=== PATIENT | female | born 1935 | race Caucasian/White ===

== ENCOUNTER 2017-11-29 08:25 | Observation (INO) | payer MEDICARE, OTHER, SELFPAY ==
[2017-11-29] VITALS (8 sets, daily range): BP systolic 90–128; BP diastolic 47–68; PULSE 48–82; RESP 16–22; TEMP 36.8–37.2; O2SAT 95–98; BMI 27.2; BMI 26.2
--- NOTE | 2017-11-29 08:46 | CT_ITS ---
STUDY: CT BRAIN WITHOUT CONTRAST REASON FOR EXAM: Female, 82 years old. Dizziness. RADIATION DOSAGE (If Supplied By Facility): CTDIvol = ( 44.99 ) mGy, DLP = ( 796.11 ) mGycm TECHNIQUE: Transaxial CT imaging of the brain was performed without administration of intravenous contrast material. Individualized dose optimization techniques were used for this CT. COMPARISON: None. FINDINGS: Normal soft tissue structures. Normal calvarium. There is mild cerebral atrophy with widening of the extra-axial spaces and ventricular dilatation. There are areas of decreased attenuation within the white matter tracts of the supratentorial brain, consistent with microvascular disease changes. Normal basal ganglia and thalami. Normal brainstem. Normal cerebellum. There is no intracranial hemorrhage. There are no findings of an acute ischemic infarction. Atherosclerotic calcification of the cavernous portions of the internal carotid arteries bilaterally. Normal visualized paranasal sinuses. CT/Brain/Head without Contrast IMPRESSION: Chronic involutional changes of the brain. Electronically Signed: Lauro Zuniga MD at 9:32 EDT Tel [phone], Service support ,
--- NOTE | 2017-11-29 08:48 | ED.VISSUMM ---
- ER Visit Summary Date of Service: 11/29/17 Chief Complaint: Room spinning dizziness History of Present Illness: The patient is a 82 F extremely healthy. Currently she is on no medications and denies any chronic medical conditions. She has not had any recent hospitalization. Yesterday she had a normal day felt very well. Sometime during the night she got up to go the bathroom and realized she had room spinning dizziness. No prior history. She believes this to be vertigo. She denies any headache, chest pain, abdominal pain or fever. She states the spinning is so bad and made worse with head movement that causes her to have nausea and vomiting. No hematemesis or melena. She denies any numbness, tingling or weakness in her upper or lower extremities. She denies any head trauma. She is on no blood thinners. Physical Examination: Older female vital signs are stable and afebrile. Pulse ox is 95% on room air no hypoxia. Blood pressure 128/66. H EENT exam unremarkable. Neck nontender no lymphadenopathy. Trachea midline. Lungs clear to auscultation bilaterally. Heart regular rhythm no murmur rate about 70. Abdomen soft and nontender. She is moving all 4 extremities. They are neurovascularly intact. She is equal and symmetrical school counselor strength. Dorsi plantar flexion intact. Her neurologic exam is normal. No facial droop. Normal speech. Pupils are round reactive light extraocular motions are intact. Normal school counselor strength. Normal fingertip to nose. Normal dorsi plantarflexion. NIH is 0. With Hallpike maneuvers her symptoms are greatly worsened. To the point where she nearly throws up. Test Results: CAT scan of the brain shows chronic changes no acute process reviewed by me but read by the radiologist. EKG is a sinus bradycardia rate of 50 otherwise no acute abnormality no ischemia. CBC normal white count 8. Hemoglobin of 12. Electrolytes unremarkable gap of 9 creatinine is 0.7. UA is normal. That was requested by the daughter as well as a troponin that is pending. The daughter is an ER nurse and wanted some additional testing done which I told her we would do. Clinically I believe this is consistent with vertigo Emergency Department Course and Treatment: Treated with IV Zofran, IV fluids and I will do screening labs due to her age but clinically her exam and history are consistent with vertigo. Treatment Plan: After being treated with Zofran and IN the patient is sedated and her symptoms are not significantly better. I think she is a risk for a fall and do not feel she can be comfortably discharged to home neither does her daughter nor the patient. I spoke to the hospitalist and no admit her. Disposition: Admission Impression: Acute dizziness with nausea and vomiting secondary to vertigo This note was generated with [employer] dictation software. It may contain incorrect words, spelling, and punctuation that were not noted in review of the chart prior to signing ED Disposition - Plan for ED Patient: Chief Complaint: Dizziness Referrals: Richard Girard MD [NON-STAFF] -
--- NOTE | 2017-11-29 08:51 | ED.DCSUM_ITS ---
- ER Visit Summary Date of Service: 11/29/17 Chief Complaint: Room spinning dizziness History of Present Illness: The patient is a 82 F extremely healthy. Currently she is on no medications and denies any chronic medical conditions. She has not had any recent hospitalization. Yesterday she had a normal day felt very well. Sometime during the night she got up to go the bathroom and realized she had room spinning dizziness. No prior history. She believes this to be vertigo. She denies any headache, chest pain, abdominal pain or fever. She states the spinning is so bad and made worse with head movement that causes her to have nausea and vomiting. No hematemesis or melena. She denies any numbness , tingling or weakness in her upper or lower extremities. She denies any head trauma. She is on no blood thinners. Physical Examination: Older female vital signs are stable and afebrile. Pulse ox is 95% on room air no hypoxia. Blood pressure 128/66. H EENT exam unremarkable. Neck nontender no lymphadenopathy. Trachea midline. Lungs clear to auscultation bilaterally. Heart regular rhythm no murmur rate about 70. Abdomen soft and nontender. She is moving all 4 extremities. They are neurovascularly intact. She is equal and symmetrical multimedia producer strength. Dorsi plantar flexion intact. Her neurologic exam is normal. No facial droop. Normal speech. Pupils are round reactive light extraocular motions are intact. Normal multimedia producer strength. Normal fingertip to nose. Normal dorsi plantarflexion. NIH is 0. With Hallpike maneuvers her symptoms are greatly worsened. To the point where she nearly throws up. Test Results: CAT scan of the brain shows chronic changes no acute process reviewed by me but read by the radiologist. EKG is a sinus bradycardia rate of 50 otherwise no acute abnormality no ischemia. CBC normal white count 8. Hemoglobin of 12. Electrolytes unremarkable gap of 9 creatinine is 0.7. UA is normal. That was requested by the daughter as well as a troponin that is pending. The daughter is an ER nurse and wanted some additional testing done which I told her we would do. Clinically I believe this is consistent with vertigo Emergency Department Course and Treatment: Treated with IV Zofran, IV fluids and I will do screening labs due to her age but clinically her exam and history are consistent with vertigo. Treatment Plan: After being treated with Zofran and IN the patient is sedated and her symptoms are not significantly better. I think she is a risk for a fall and do not feel she can be comfortably discharged to home neither does her daughter nor the patient. I spoke to the hospitalist and no admit her. Disposition: Admission Impression: Acute dizziness with nausea and vomiting secondary to vertigo This note was generated with [employer] dictation software. It may contain incorrect words, spelling, and punctuation that were not noted in review of the chart prior to signing ED Disposition - Plan for ED Patient: Chief Complaint: Dizziness Referrals: Richard Girard MD [NON-STAFF] -
[2017-11-29] MEDS: Ondansetron 4 MG/2 ML Vial IV (09:24)
[2017-11-29] MEDS: 0.9% Normal Saline 1,000 ML 1000 ML IV (09:24)
[2017-11-29] MEDS: diazePAM 5 MG Tablet PO (09:24)
[2017-11-29 09:29] LABS: Absolute Neutrophil Count 7.7 X10^3/uL (2.0-7.7); Basophil# 0.01 X10^3/uL; Basophil% 0.1 % (0-1); Eosinophil# 0.01 X10^3/uL; Eosinophils% 0.1 % (0-5); Hematocrit 37.5 % (37-47); Hemoglobin 12.2 g/dl (12.0-15.0); Lymphocyte % 10.1 % (19-41); Mean Corp Hgb Conc 32.5 g/gl (32-36); Mean Corpuscular Hgb 30.3 pg (27.0-32.0); Mean Corpuscular Volume 93.1 fL (81-99); Mean Platelet Vol. 9.8 fl (6.2-12.0); Monocyte# 0.27 X10^3/uL; Neutrophil # 7.74 X10^3/uL (2.7-7.7); Neutrophil % 86.6 % (47-70); POSITIVE COUNT NO; POSITIVE DIFFERENTIAL NO; POSITIVE MORPHOLOGY NO; Platelet Count 152 K/mm3 (150-450); RBC Distribution Width SD 44.5 fl (35.1-43.9); Red Blood Count 4.03 M/mm3 (4.2-5.4); White Blood Count 8.9 K/mm3 (4.4-11.0)
[2017-11-29 09:41] LABS: Anion Gap 9 (5-15); BUN 20 mg/dL (7-18); BUN/Creat Ratio 27.3 RATIO (10-20); Calcium,Total 8.6 mg/dL (8.5-10.1); Chloride 109 mmol/L (98-107); Creatinine, Serum 0.73 mg/dL (0.55-1.02); EST Glomerular Filtration Rate 80 mL/min (>60); Est Glom Filt Rate - Afr Amer 97 mL/min (>60); Estimated Creatinine Clearance 33.71 ml/min; Glucose 138 mg/dL (74-106); Potassium 3.9 mmol/L (3.5-5.1); Sodium Level 145 mmol/L (136-145)
[2017-11-29 10:51] LABS: Bacteria 0 SEEN /hpf (None Seen); Mucous, Urine 0 SEEN /hpf (<or=2+); Red Blood Cells-Urine 0 SEEN /hpf (0-5); White Blood Cells 0 SEEN /hpf (0-5)
[2017-11-29 10:53] LABS: Color, Urine Yellow (Yellow); Glucose, Dipstick Normal (Normal); Ketone-Dipstick 5 mg/dl (Negative); Leukocyte Esterase-Dipstick 25 /ul (Negative); Nitrite-Dipstick Negative (Negative); Occult Blood-Urine 10 /ul (Negative); Protein-Dipstick 15 mg/dl (Negative); Specific Gravity, Urine 1.015 (1.002-1.030); Urine Bilirubin Dipstick Negative (Negative); Urine Clarity Clear (Clear); Urine Urobilinogen Normal (Normal); Urine pH 6.5 (5.0 - 8.0)
[2017-11-29 11:01] LABS: Squamous Epithelial Cells - UA 0-5 SEEN /hpf (5-10)
[2017-11-29] MEDS: Meclizine HCl 25 MG Tablet PO ×2 (13:29→21:22)
--- NOTE | 2017-11-29 13:58 | PCM.HP.STD ---
Problem List (1) Benign paroxysmal positional vertigo of right ear Status: Acute History of Present Illness Date of Admission: 11/29/17 Chief Complaint: vertigo The patient is a 82 year old F who is otherwise for her age quite healthy. Presents to the hospital with sudden onset of vertiginous symptoms. Occurring with head and neck movements and positional changes. She has been having nausea with the episodes and occasional vomiting as well. She denies any headache, double vision, slurring of speech, aphasia, dysphagia, extremity weakness or numbness. Denies chest pain or palpitations of SOB[] Past Medical History Allergies No Known Allergies Allergy (Verified 11/29/17 08:30) Home Medications: Ambulatory Orders Medication Instructions Recorded NK [NK] 11/29/17 Smoking Status: Never smoker Review of Systems Constitutional: Denies: Anorexia, Chills, Fever Eyes: Denies: Double vision, Vision Change HEENT: Denies: Head Aches Cardiovascular: Denies: Chest Pain, Chest Pressure, Chest Tightness, Edema Respiratory: Denies: Cough, Shortness of Breath, Shortness of breath at rest Gastrointestinal: Reports: Nausea, Vomiting. Denies: Abdominal Pain Neurological: Reports: Balance problems. Denies: Change in Speech, Focal weakness, Headaches, Tremor, Seizures Endocrine: Denies: Change in Body Habitus VTE Information - Inpt Only VTE Present on Admission: Yes VTE Pharm Prophylaxis ordered?: Yes Patient Problems: Active and Suspected Problems Benign paroxysmal positional vertigo of right ear (Acute) - Physical Exam General: Alert, Oriented x3, Cooperative HEENT: Atraumatic Oral: Moist Mucosa Neck: Supple, No JVD Lungs: Clear to auscultation, Normal air movement, No rhonchi, No wheeze, No rales Cardiovascular: Regular Rhythm, Normal S1, Normal S2, Bradycardic Abdomen: Non-Distended Extremities: No edema Neurological: Cranial nerves II-XII grossly intact, Motor Exam 5/5 strength throughout Psych/Mental Status: Normal Affect, Appropriate Vital Signs Temp Pulse Resp BP Pulse Ox 98.7 F 63 22 H 101/49 L 97 11/29/17 08:29 11/29/17 10:39 11/29/17 10:39 11/29/17 10:39 11/29/17 10:39 Weight: 64.892 kg Body Mass Index (BMI) 26.2 Assessment/Plan All Active Problems Benign paroxysmal positional vertigo of right ear (Acute) 1. Sudden onset vertiginous symptoms. 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 Posterior circulation stroke unlikely. [place]-Hallpike maneuver done in the ED was positive. Will do MRI to r/o posterior circulation stroke and maybe CTA to r/o vertebrobasilar insufficiency if indicated Vestibular sedatives for symptoms management Physical therapy to look into possible vestibular rehab Code Visit Inpatient E&M: 12948 Init Hosp L3
[2017-11-30] VITALS (7 sets, daily range): BP systolic 85–99; BP diastolic 41–53; PULSE 64–75; RESP 16–18; TEMP 36.8–37.1; O2SAT 94–97
[2017-11-30] MEDS: Meclizine HCl 25 MG Tablet PO ×2 (06:18→13:37)
[2017-11-30] MEDS: Enoxaparin 40 MG/0.4 ML Syringe SC (07:42)
--- NOTE | 2017-11-30 11:19 | CASEMGMT ---
RN CM assessment completed. DC PLAN Home -Intro role of CM to patient in room. she is awake, alert and able to participate in RN CM assessment. -Pt states she is very independent @ home. Drives, does not use DME. Has walker, cane if needed for stability until vertigo is resolved. ABalogpedro BSN RN ACM
--- NOTE | 2017-11-30 12:39 | PCM.DC ---
- Discharge Diagnoses Current Active Problems: Current Active and Chronic Problems Benign paroxysmal positional vertigo of right ear (Acute) You will use the following diet at home:: No restrictions, Regular Discharge Activity: Return to Normal Activity, No Restrictions Additional Instructions: Avoid driving for then next few days until symptoms of vertigo completely resolved Allergies/Adverse Reactions: Allergies No Known Allergies Allergy (Verified 11/29/17 08:30) Medications to take at Discharge Multivitamin [Multiple Vitamins] 1 each PO DAILY 11/29/17 Meclizine HCl [Antivert] 25 mg PO TID #6 tab 11/30/17 The following prescriptions were given: Meclizine HCl [Antivert] 25 mg PO TID #6 tab Primary Care Physician: Richard Girard MD [NON-STAFF] - Please follow up with your Primary Care Physician in: 1-2 weeks Test Results: Test results from this visit will be discussed in further detail at your follow-up appointment, if applicable. Proposed Discharge Date: 11/30/17
--- NOTE | 2017-11-30 12:42 | PCM.DC.SUM ---
Discharge Date and Diagnosis - Problem List Patient Problems: Active and Suspected Problems Benign paroxysmal positional vertigo of right ear (Acute) Date of Admission: 11/29/17 Date of Discharge: 11/30/17 - Primary Discharge Diagnosis Active and Suspected Problems Benign paroxysmal positional vertigo of right ear (Acute) Hospital Course and Treatment Operations: None Procedures: None Summary of Care Provided: The patient is a 82 year old F. Presented with sudden onset of vertigo. Was diagnosed with BPPV. 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 Physical therapy was consulted to assist with canalith repositioning maneuvers and this was successfully done. Patient ambulated with therapy well and independently also. Symptoms are now largely resolved Advise not to drive until symptoms fully resolved[] Discharge Diet: No Restrictions Discharge Activity: Return to Normal Activity, No Restrictions Home Medications: Medications to take at Discharge Multivitamin [Multiple Vitamins] 1 each PO DAILY 11/29/17 Meclizine HCl [Antivert] 25 mg PO TID #6 tab 11/30/17 Following Prescrptions Were Given to Patient: Meclizine HCl [Antivert] 25 mg PO TID #6 tab Primary Care Physician: Richard Girard MD [NON-STAFF] - Please follow up with your Primary Care Physician in: 1-2 weeks Minutes spent on discharge:: 30 Patient Condition:: Good Medical Necessity - Tobacco Use Smoking Status: Never smoker Meaningful Use Info Meaningful Use Diagnoses (Choose all that apply): None applicable Code Visit OBSV E&M: 05318 Observation care discharge
== END 2017-11-30 18:35 | disposition home or self-care (01) ==
LOC: ED 09:32 → MS3 11:50
PROVIDERS: Admitting Provider Internal Medicine; Emergency Provider Emergency Medicine; Family Provider Internal Medicine; PCP Internal Medicine; Visit Provider Internal Medicine
DX: H81.11 Benign paroxysmal vertigo, right ear (principal); R00.1 Bradycardia, unspecified
CPT/HCPCS: 70450; 70551; 80048; 81001; 84484; 85025; 93005; 96372; 96374; 97110; 97162; 99218; 99285; J7030; J7040; A4216; G0378; J2405

== ENCOUNTER 2018-01-14 10:37 | Inpatient (IN) | payer MEDICARE, OTHER, SELFPAY ==
[2018-01-14] VITALS (10 sets, daily range): BP systolic 95–138; BP diastolic 51–66; PULSE 77–99; RESP 16–21; TEMP 36.5–37.6; O2SAT 94–98; BMI 26.4; BMI 26.1; BMI 26.2
[2018-01-14] MEDS: Acetaminophen 500 MG Tablet 1000 MG PO (11:37)
[2018-01-14 11:44] LABS: Absolute Lymphocyte Count 0.62 X10^3/ul (0.83-4.51); Absolute Neutrophil Count 9.1 X10^3/uL (2.0-7.7); Basophil# 0.01 X10^3/uL; Basophil% 0.1 % (0-1); Hematocrit 38.1 % (37-47); Hemoglobin 12.5 g/dl (12.0-15.0); Lymphocyte # 0.62 X10^3/ul (4.0); Lymphocyte % 5.9 % (19-41); Mean Corp Hgb Conc 32.8 g/gl (32-36); Mean Corpuscular Volume 91.6 fL (81-99); Mean Platelet Vol. 9.3 fl (6.2-12.0); Monocyte# 0.87 X10^3/uL; Monocyte% 8.2 % (0-10); Neutrophil # 9.08 X10^3/uL (2.7-7.7); Neutrophil % 85.7 % (47-70); POSITIVE COUNT NO; POSITIVE DIFFERENTIAL NO; POSITIVE MORPHOLOGY NO; Platelet Count 132 K/mm3 (150-450); RBC Distribution Width CV 13.5 % (11.6-14.6); RBC Distribution Width SD 45.5 fl (35.1-43.9); Red Blood Count 4.16 M/mm3 (4.2-5.4); White Blood Count 10.6 K/mm3 (4.4-11.0)
[2018-01-14 11:54] LABS: Anion Gap 9 (5-15); BUN 19 mg/dL (7-18); BUN/Creat Ratio 22.7 RATIO (10-20); Calcium,Total 8.8 mg/dL (8.5-10.1); Chloride 99 mmol/L (98-107); Creatinine, Serum 0.84 mg/dL (0.55-1.02); EST Glomerular Filtration Rate 69 mL/min (>60); Est Glom Filt Rate - Afr Amer 84 mL/min (>60); Estimated Creatinine Clearance 38.29 ml/min; Glucose 116 mg/dL (74-106); Potassium 3.8 mmol/L (3.5-5.1); Sodium Level 135 mmol/L (136-145)
--- NOTE | 2018-01-14 11:55 | RAD_ITS ---
STUDY: X-RAY CHEST REASON FOR EXAM: Female, 82 years old. Cough TECHNIQUE: PA and lateral views of the chest. COMPARISON: None. FINDINGS: There is hyperinflation of the lungs consistent with chronic obstructive lung disease (COPD). Lungs are clear. There is no demonstrated pleural abnormality. There is mild cardiac enlargement. Normal mediastinum and shannan. Normal visualized pulmonary arteries. Normal visualized aortic arch and descending thoracic aorta. There are diffuse degenerative changes of the visualized thoracic spine. Normal visualized ribs, clavicles, and shoulders. There is no demonstrated abnormality of the visualized soft tissue structures of the upper abdomen. RAD/Chest PA and Lateral IMPRESSION: No acute cardiopulmonary disease Electronically Signed: Hernando Morton DO at 12:09 EDT Tel , Service support ,
--- NOTE | 2018-01-14 12:04 | CT_ITS ---
STUDY: CT BRAIN WITHOUT CONTRAST REASON FOR EXAM: Female, 82 years old. Found on ground by a neighbor RADIATION DOSAGE (If Supplied By Facility): CTDIvol = ( 44.99 ) mGy, DLP = ( 1024.17 ) mGycm TECHNIQUE: Transaxial CT imaging of the brain was performed without administration of intravenous contrast material. Individualized dose optimization techniques were used for this CT. COMPARISON: 11/29/2017 FINDINGS: Normal soft tissue structures. Normal calvarium. There is mild cerebral atrophy with widening of the extra-axial spaces and ventricular dilatation. There are areas of decreased attenuation within the white matter tracts of the supratentorial brain, consistent with microvascular disease changes. Normal basal ganglia and thalami. Normal brainstem. There is mild cerebellar atrophy. There is no intracranial hemorrhage. There are no findings of an acute ischemic infarction. Normal visualized paranasal sinuses. CT/Brain/Head without Contrast IMPRESSION: Chronic involutional changes of the brain. Electronically Signed: Hernando Morton DO at 12:43 EDT Tel , Service support ,
[2018-01-14 12:05] LABS: Lactic Acid 1.6 mmol/L (0.4-2.0)
[2018-01-14 12:49] LABS: CPK Total, Creatine Kinase 952 U/L (26-192)
[2018-01-14 13:08] LABS: Color, Urine Yellow (Yellow); Glucose, Dipstick Normal (Normal); Ketone-Dipstick 50 mg/dl (Negative); Leukocyte Esterase-Dipstick 25 /ul (Negative); Nitrite-Dipstick Negative (Negative); Occult Blood-Urine 150 /ul (Negative); Protein-Dipstick 100 mg/dl (Negative); Specific Gravity, Urine 1.025 (1.002-1.030); Urine Bilirubin Dipstick Negative (Negative); Urine Clarity Sl. Cloudy (Clear); Urine Urobilinogen Normal (Normal)
[2018-01-14 13:20] LABS: Red Blood Cells-Urine 0-5 SEEN /hpf (0-5); Squamous Epithelial Cells - UA 0-5 SEEN /hpf (5-10); White Blood Cells 0-5 SEEN /hpf (0-5)
[2018-01-14 13:21] LABS: Bacteria 2+ /hpf (None Seen); Mucous, Urine 2+ /hpf (<or=2+)
--- NOTE | 2018-01-14 13:53 | ED.VISSUMM ---
- ER Visit Summary Date of Service: 01/14/18 Chief Complaint: Cough History of Present Illness: The patient is a [address] Kirkpatrick. Patient lives by herself. Neighbor came over and found her on the floor today and she was too weak to get up. Patient does not remember what had happened. She reports that she has a little bit of neck pain. On review of systems patient reports she had a fever to 101.6 degrees. She has had a cough productive of cream-colored sputum for the past 3-4 days. She denies any shortness of breath. She reports she has chest pain and a sore throat with coughing only. She denies any abdominal pain, nausea, vomiting, or diarrhea. No dysuria or frequency. No headache. Physical Examination: Vitals: Stable. Afebrile. General: Well-nourished and well-developed. Head: Normocephalic atraumatic. Neck: Supple, no lymphadenopathy. No JVD. Nontender. Cardiovascular: Regular rate and rhythm. 2 out of 6 systolic murmur. Respiratory: No respiratory distress. Clear to auscultation bilaterally. Abdominal: Soft, nontender, nondistended, normal bowel sounds. No guarding, rebound, or peritoneal signs. Back: Nontender. Extremities: Nontender, no edema. Skin: Normal color, no rash. Neurologic: Alert and oriented ?3. Cranial nerves II through XII are intact. Normal strength and sensation. Psych: Normal affect. Test Results: Chest x-ray shows chronic changes. CT brain shows chronic changes. CBC is more for platelets 132, segmented neutrophils 86, lymphocytes of 6. Chem-7 is marked for sodium 135, BUN of 19, glucose of 116. UA is marked for leukocytes, ketones, blood, and 2+ bacteria. CPK is 952. Emergency Department Course and Treatment: Patient has waxing and waning confusion. She is having difficult time expressing her thoughts. This was discussed with the daughter who states that this is abnormal for her. She was treated with Tylenol p.o. and Levaquin IV. Treatment Plan: Blood cultures and urine cultures were sent. Patient is going to be treated clinically as pneumonia. She will require admission to the hospital for further evaluation and treatment. Disposition: Admitted in stable condition. Impression: 1. Clinical pneumonia. 2. Acute delirium. 3. Generalized weakness. This note was generated with [employer] dictation software. It may contain incorrect words, spelling, and punctuation that were not noted in review of the chart prior to signing ED Disposition - Plan for ED Patient: Chief Complaint: Fall Referrals: Valarie Kirkpatrick MD [Primary Care Provider] -
--- NOTE | 2018-01-14 14:18 | PCM.HP.STD ---
Problem List (1) Community acquired pneumonia Status: Suspected (2) Acute bronchitis Status: Acute History of Present Illness Date of Admission: 01/14/18 Chief Complaint: Productive cough, wheezing. The patient is a 82 year old F with no significant past medical history presented to the emergency room because of productive cough, wheezing and subjective fever. Her symptoms started 3 days ago with productive cough with moderate amount of green sputum, associated with wheezing, sore throat and weakness as well as subjective fever and without aggravating or relieving factors. She mentioned that she has been feeling very weak and tired over the last couple of days. She denied shortness of breath, chest pain or palpitation. Reportedly, EMS found that her temperature was 101.6 Fahrenheit at home upon arrival. Today, she was found by her neighbor on the floor and not able to get up and she was confused. At this time, she is alert and oriented x3. She lives alone. In the emergency department, she has spike of low-grade fever, other vital signs were stable. Reportedly, her pulse ox came down to high 80s on room air. Routine blood work was unremarkable. Her lactic acid was normal. Chest x-ray showed no acute infiltrate, consolidation or effusion. CT scan brain showed no acute findings. She is being admitted for acute bronchitis and probable community acquired pneumonia. Past Medical History Allergies No Known Allergies Allergy (Verified 01/14/18 10:41) Home Medications: Ambulatory Orders Medication Instructions Recorded Multivitamin [Multiple Vitamins] 1 each PO DAILY 11/29/17 Calcium Carbonate [Calcium] 600 mg PO DAILY 01/14/18 Cholecalciferol (VIT D3) 1 tab PO DAILY 01/14/18 Surgical History: - - Surgery for fracture of the right leg. 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 Denies: Chills Eyes: Denies: Blurred vision, Double vision, Drainage, Redness HEENT: Reports: Nasal Congestion, Sore Throat. Denies: Difficulty Hearing, Ear Pain, Eye Pain Cardiovascular: Denies: Chest Pain, Chest Pressure, Chest Tightness, Heaviness, Light Headedness, Palpitations, Syncope Respiratory: Reports: Cough, Sputum production, Wheezing. Denies: Hemoptysis, Pleuritic Pain, Shortness of Breath Gastrointestinal: Denies: Abdominal Pain, Constipation, Diarrhea, Nausea, Vomiting Genitourinary: Denies: Dysuria, Frequency, Hematuria Musculoskeletal: Denies: Arm Pain, Back Pain, Foot Pain Skin: Denies: Dryness, Rash Neurological: Reports: Headaches. Denies: Balance problems, Double vision, Slurred speech, Incoordination, Numbness, Tingling Psychiatric: Denies: Anxiety, Depression Endocrine: Denies: Change in Body Habitus, Polydipsia VTE Information - Inpt Only VTE Present on Admission: No VTE Mechan Device Prophylaxis: None VTE Pharm Prophylaxis ordered?: Yes Patient Problems: Active and Suspected Problems Community acquired pneumonia (Suspected) Acute bronchitis (Acute) - Physical Exam General: Alert, Oriented x3, Cooperative, No apparent distress HEENT: Atraumatic, PERRLA, EOMI, Normocephalic Oral: Moist Mucosa, No Gingival or Mucosal Lesions/ Ulcerations Neck: Supple, No JVD, Negative Carotid Bruits, Trachea Midline, Thyroid Normal Size and Texture Lungs: Diminished, Rales, Rhonchi, Wheezes, - - Diminished breath sounds bilateral, bilateral faint wheezing, right base crackles. Cardiovascular: Regular rate, Regular Rhythm, Normal S1, Normal S2, No murmurs, PMI Normal Abdomen: Bowel Sounds Present, Soft, Non Tender, Non-Distended, No Hepato-splenomegaly Extremities: No clubbing, No cyanosis, No edema Skin: No rashes, No breakdown Lymphatic: No Cervical, Supraclavicular, or Inguinal Adenopathy Neurological: Cranial nerves II-XII grossly intact, Motor Exam 5/5 strength throughout Psych/Mental Status: Normal Affect, Appropriate, Alert and oriented to time, place, person, mood and affect Vital Signs Temp Pulse Resp BP Pulse Ox 99.3 F H 81 18 95/52 L 94 01/14/18 10:39 01/14/18 14:00 01/14/18 14:00 01/14/18 14:00 01/14/18 14:00 Oxygen Delivery Method Room Air Weight: 140 lb Body Mass Index (BMI) 26.4 Laboratory Tests Past 24 Hrs 01/14/18 01/14/18 01/14/18 11:29 11:29 11:29 WBC 10.6 RBC 4.16 L Hgb 12.5 Hct 38.1 MCV 91.6 MCH 30.0 MCHC 32.8 RDW 13.5 RDW Differential 45.5 H Plt Count 132 L MPV 9.3 Immature Gran % (Auto) 0.100 Neut % (Auto) 85.7 H Lymph % (Auto) 5.9 L [place] % (Auto) 8.2 Eos % (Auto) 0.0 Baso % (Auto) 0.1 Absolute Neuts (auto) 9.1 H Absolute Lymphs (auto) 0.62 L Total Counted Not Reportable Sodium 135 L Potassium 3.8 Chloride 99 Carbon Dioxide 27.0 Anion Gap 9 BUN 19 H Creatinine 0.84 Estim Creat Clear Calc 38.29 Est GFR (MDRD) Af Amer 84 Est GFR (MDRD) Non-Af 69 BUN/Creatinine Ratio 22.7 H Glucose 116 H Lactic Acid 1.6 Calcium 8.8 Total Creatine Kinase Urine Color Urine Clarity Urine pH Ur Specific [place] Urine Protein Urine Glucose (UA) Urine Ketones Urine Occult Blood Urine Nitrite Urine Bilirubin Urine Urobilinogen Ur Leukocyte Esterase Urine RBC Urine WBC Ur Squamous Epith Cells Urine Bacteria Urine Mucus 01/14/18 01/14/18 11:29 12:52 WBC RBC Hgb Hct MCV MCH MCHC RDW RDW Differential Plt Count MPV Immature Gran % (Auto) Neut % (Auto) Lymph % (Auto) [place] % (Auto) Eos % (Auto) Baso % (Auto) Absolute Neuts (auto) Absolute Lymphs (auto) Total Counted Sodium Potassium Chloride Carbon Dioxide Anion Gap BUN Creatinine Estim Creat Clear Calc Est GFR (MDRD) Af Amer Est GFR (MDRD) Non-Af BUN/Creatinine Ratio Glucose Lactic Acid Calcium Total Creatine Kinase 952 H Urine Color Yellow Urine Clarity Sl. Cloudy Urine pH 6.0 Ur Specific [place] 1.025 Urine Protein 100 H Urine Glucose (UA) Normal Urine Ketones 50 H Urine Occult Blood 150 H Urine Nitrite Negative Urine Bilirubin Negative Urine Urobilinogen Normal Ur Leukocyte Esterase 25 H Urine RBC 0-5 SEEN Urine WBC 0-5 SEEN Ur Squamous Epith Cells 0-5 SEEN Urine Bacteria 2+ Urine Mucus 2+ Clinical Impression(s) from Imaging Studies Chest X-Ray 01/14/18 11:55 IMPRESSION: No acute cardiopulmonary disease Electronically Signed: Hernando Morton DO at 12:09 EDT Tel , Service support , Brain CT 01/14/18 12:04 IMPRESSION: Chronic involutional changes of the brain. Electronically Signed: Hernando Morton DO at 12:43 EDT Tel , Service support , Assessment/Plan All Active Problems Acute bronchitis (Acute) This is an 82 years old female patient presented to the emergency department because of productive cough, wheezing, fever and weakness and she was found to have acute bronchitis and clinically diagnosed probable community-acquired pneumonia and she is being admitted for treatment. #1 acute bronchitis/clinically suspected community-acquired pneumonia: On symptoms including productive cough with green sputum, wheezing, with recent fever as well as finding of coarse crackles in the right base. Chest x-ray showed no obvious infiltrate. Her lactic acid was normal, no leukocytosis. [facility] blood culture, urine culture, sputum culture, pneumococcal and Legionella antigen, respiratory panel for viruses, DuoNeb every 6 hours, albuterol as needed, IV Levaquin, antitussives, incentive spirometer, repeat chest x-ray tomorrow morning, PT OT evaluation and treatment. #2 probable mild rhabdomyolysis: Total creatine kinase is 952, patient was found in the floor for unknown period of time which is probably caused muscle damage. Plan for IV fluids, encourage oral intake, repeat BMP and creatinine kinase tomorrow morning. #3 DVT prophylaxis: Subcu Lovenox. This note was generated with [employer] dictation software. It may contain incorrect words, spelling, and punctuation that were not noted in checking the note before signing. Code Visit Inpatient E&M: 56559 Init Hosp L2
--- NOTE | 2018-01-14 14:21 | HP.PCM_ITS ---
Problem List (1) Community acquired pneumonia Status: Suspected (2) Acute bronchitis Status: Acute History of Present Illness Date of Admission: 01/14/18 Chief Complaint: Productive cough, wheezing. The patient is a 82 year old F with no significant past medical history presented to the emergency room because of productive cough, wheezing and subjective fever. Her symptoms started 3 days ago with productive cough with moderate amount of green sputum, associated with wheezing, sore throat and weakness as well as subjective fever and without aggravating or relieving factors. She mentioned that she has been feeling very weak and tired over the last couple of days. She denied shortness of breath, chest pain or palpitation. Reportedly, EMS found that her temperature was 101.6 Fahrenheit at home upon arrival. Today, she was found by her neighbor on the floor and not able to get up and she was confused. At this time, she is alert and oriented x3. She lives alone. In the emergency department, she has spike of low-grade fever, other vital signs were stable. Reportedly, her pulse ox came down to high 80s on room air. Routine blood work was unremarkable. Her lactic acid was normal. Chest x-ray showed no acute infiltrate, consolidation or effusion. CT scan brain showed no acute findings. She is being admitted for acute bronchitis and probable community acquired pneumonia. Past Medical History Allergies No Known Allergies Allergy (Verified 01/14/18 10:41) Home Medications: Ambulatory Orders Medication Instructions Recorded Multivitamin [Multiple Vitamins] 1 each PO DAILY 11/29/17 Calcium Carbonate [Calcium] 600 mg PO DAILY 01/14/18 Cholecalciferol (VIT D3) 1 tab PO DAILY 01/14/18 Surgical History: - - Surgery for fracture of the right leg. 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 Denies: Chills Eyes: Denies: Blurred vision, Double vision, Drainage, Redness HEENT: Reports: Nasal Congestion, Sore Throat. Denies: Difficulty Hearing, Ear Pain, Eye Pain Cardiovascular: Denies: Chest Pain, Chest Pressure, Chest Tightness, Heaviness, Light Headedness, Palpitations, Syncope Respiratory: Reports: Cough, Sputum production, Wheezing. Denies: Hemoptysis, Pleuritic Pain, Shortness of Breath Gastrointestinal: Denies: Abdominal Pain, Constipation, Diarrhea, Nausea, Vomiting Genitourinary: Denies: Dysuria, Frequency, Hematuria Musculoskeletal: Denies: Arm Pain, Back Pain, Foot Pain Skin: Denies: Dryness, Rash Neurological: Reports: Headaches. Denies: Balance problems, Double vision, Slurred speech, Incoordination, Numbness, Tingling Psychiatric: Denies: Anxiety, Depression Endocrine: Denies: Change in Body Habitus, Polydipsia VTE Information - Inpt Only VTE Present on Admission: No VTE Mechan Device Prophylaxis: None VTE Pharm Prophylaxis ordered?: Yes Patient Problems: Active and Suspected Problems Community acquired pneumonia (Suspected) Acute bronchitis (Acute) - Physical Exam General: Alert, Oriented x3, Cooperative, No apparent distress HEENT: Atraumatic, PERRLA, EOMI, Normocephalic Oral: Moist Mucosa, No Gingival or Mucosal Lesions/ Ulcerations Neck: Supple, No JVD, Negative Carotid Bruits, Trachea Midline, Thyroid Normal Size and Texture Lungs: Diminished, Rales, Rhonchi, Wheezes, - - Diminished breath sounds bilateral, bilateral faint wheezing, right base crackles. Cardiovascular: Regular rate, Regular Rhythm, Normal S1, Normal S2, No murmurs, PMI Normal Abdomen: Bowel Sounds Present, Soft, Non Tender, Non-Distended, No Hepato- splenomegaly Extremities: No clubbing, No cyanosis, No edema Skin: No rashes, No breakdown Lymphatic: No Cervical, Supraclavicular, or Inguinal Adenopathy Neurological: Cranial nerves II-XII grossly intact, Motor Exam 5/5 strength throughout Psych/Mental Status: Normal Affect, Appropriate, Alert and oriented to time, place, person, mood and affect Vital Signs Temp Pulse Resp BP Pulse Ox 99.3 F H 81 18 95/52 L 94 01/14/18 10:39 01/14/18 14:00 01/14/18 14:00 01/14/18 14:00 01/14/18 14:00 Oxygen Delivery Method Room Air Weight: 140 lb Body Mass Index (BMI) 26.4 Laboratory Tests Past 24 Hrs 01/14/18 01/14/18 01/14/18 11:29 11:29 11:29 WBC 10.6 RBC 4.16 L Hgb 12.5 Hct 38.1 MCV 91.6 MCH 30.0 MCHC 32.8 RDW 13.5 RDW Differential 45.5 H Plt Count 132 L MPV 9.3 Immature Gran % (Auto) 0.100 Neut % (Auto) 85.7 H Lymph % (Auto) 5.9 L [place] % (Auto) 8.2 Eos % (Auto) 0.0 Baso % (Auto) 0.1 Absolute Neuts (auto) 9.1 H Absolute Lymphs (auto) 0.62 L Total Counted Not Reportable Sodium 135 L Potassium 3.8 Chloride 99 Carbon Dioxide 27.0 Anion Gap 9 BUN 19 H Creatinine 0.84 Estim Creat Clear Calc 38.29 Est GFR (MDRD) Af Amer 84 Est GFR (MDRD) Non-Af 69 BUN/Creatinine Ratio 22.7 H Glucose 116 H Lactic Acid 1.6 Calcium 8.8 Total Creatine Kinase Urine Color Urine Clarity Urine pH Ur Specific [place] Urine Protein Urine Glucose (UA) Urine Ketones Urine Occult Blood Urine Nitrite Urine Bilirubin Urine Urobilinogen Ur Leukocyte Esterase Urine RBC Urine WBC Ur Squamous Epith Cells Urine Bacteria Urine Mucus 01/14/18 01/14/18 11:29 12:52 WBC RBC Hgb Hct MCV MCH MCHC RDW RDW Differential Plt Count MPV Immature Gran % (Auto) Neut % (Auto) Lymph % (Auto) [place] % (Auto) Eos % (Auto) Baso % (Auto) Absolute Neuts (auto) Absolute Lymphs (auto) Total Counted Sodium Potassium Chloride Carbon Dioxide Anion Gap BUN Creatinine Estim Creat Clear Calc Est GFR (MDRD) Af Amer Est GFR (MDRD) Non-Af BUN/Creatinine Ratio Glucose Lactic Acid Calcium Total Creatine Kinase 952 H Urine Color Yellow Urine Clarity Sl. Cloudy Urine pH 6.0 Ur Specific [place] 1.025 Urine Protein 100 H Urine Glucose (UA) Normal Urine Ketones 50 H Urine Occult Blood 150 H Urine Nitrite Negative Urine Bilirubin Negative Urine Urobilinogen Normal Ur Leukocyte Esterase 25 H Urine RBC 0-5 SEEN Urine WBC 0-5 SEEN Ur Squamous Epith Cells 0-5 SEEN Urine Bacteria 2+ Urine Mucus 2+ Clinical Impression(s) from Imaging Studies Chest X-Ray 01/14/18 11:55 IMPRESSION: No acute cardiopulmonary disease Electronically Signed: Hernando Morton DO at 12:09 EDT Tel , Service support , Brain CT 01/14/18 12:04 IMPRESSION: Chronic involutional changes of the brain. Electronically Signed: Hernando Morton DO at 12:43 EDT Tel , Service support , Assessment/Plan All Active Problems Acute bronchitis (Acute) This is an 82 years old female patient presented to the emergency department because of productive cough, wheezing, fever and weakness and she was found to have acute bronchitis and clinically diagnosed probable community-acquired pn [place] and she is being admitted for treatment. #1 acute bronchitis/clinically suspected community-acquired pneumonia: On symptoms including productive cough with green sputum, wheezing, with recent fever as well as finding of coarse crackles in the right base. Chest x-ray showed no obvious infiltrate. Her lactic acid was normal, no leukocytosis. [facility] blood culture, urine culture, sputum culture, pneumococcal and Legionella antigen, respiratory panel for viruses, DuoNeb every 6 hours, albuterol as needed, IV Levaquin, antitussives, incentive spirometer, repeat chest x-ray tomorrow morning, PT OT evaluation and treatment. #2 probable mild rhabdomyolysis: Total creatine kinase is 952, patient was found in the floor for unknown period of time which is probably caused muscle damage. Plan for IV fluids, encourage oral intake, repeat BMP and creatinine kinase tomorrow morning. #3 DVT prophylaxis: Subcu Lovenox. This note was generated with [employer] dictation software. It may contain incorrect words, spelling, and punctuation that were not noted in checking the note before signing. Code Visit Inpatient E&M: 17391 Init Hosp L2
[2018-01-14] MEDS: levoFLOXacin IV 750 MG/150 ML BAG 100 MG IV (14:24)
[2018-01-14] MEDS: Ipratropium/Albuterol Sulfate 3 ML AMPUL.NEB INHALATION ×2 (15:13→18:51)
[2018-01-14] MEDS: 0.9% Normal Saline 1,000 ML 100 ML IV (17:00)
[2018-01-14] MEDS: guaiFENesin 1,200 MG Tablet 1200 MG PO (22:10)
[2018-01-15] VITALS (16 sets, daily range): BP systolic 92–133; BP diastolic 51–77; PULSE 57–96; RESP 16–21; TEMP 36.6–37.8; O2SAT 91–96
[2018-01-15] MEDS: 0.9% Normal Saline 1,000 ML 100 ML IV ×3 (01:23→21:06)
[2018-01-15] MEDS: Acetaminophen 325 MG Tablet 650 MG PO (02:39)
--- NOTE | 2018-01-15 05:55 | RAD_ITS ---
STUDY: X-RAY CHEST REASON FOR EXAM: Female, 82 years old. Productive cough and fever. Shortness of breath. TECHNIQUE: PA and lateral views of the chest. COMPARISON: Comparison is made with prior study dated January 14, 2018. FINDINGS: EKG electrodes are seen. Hyperinflation. Stable mild increased markings at the lung bases suggestive of scarring. Stable increased right perihilar markings suggestive of scarring. No acute infiltrate is seen. There is no demonstrated pleural abnormality. Normal size heart. Normal mediastinum and shannan. Normal visualized pulmonary arteries. Normal visualized aortic arch and descending thoracic aorta. Normal visualized thoracic spine. Normal visualized ribs, clavicles, and shoulders. There is no demonstrated abnormality of the visualized soft tissue structures of the upper abdomen. RAD/Chest PA and Lateral IMPRESSION: Hyperinflation. There has been no change since prior study. Electronically Signed: Lauro Zuniga MD at 11:04 EDT Tel [phone], Service support ,
[2018-01-15 06:32] LABS: Absolute Neutrophil Count 6.6 X10^3/uL (2.0-7.7); Basophil# 0.01 X10^3/uL; Basophil% 0.1 % (0-1); Hematocrit 32.5 % (37-47); Hemoglobin 10.8 g/dl (12.0-15.0); Lymphocyte % 12.9 % (19-41); Mean Corp Hgb Conc 33.2 g/gl (32-36); Mean Corpuscular Hgb 30.6 pg (27.0-32.0); Mean Corpuscular Volume 92.1 fL (81-99); Mean Platelet Vol. 10.2 fl (6.2-12.0); Monocyte# 0.86 X10^3/uL; Monocyte% 10.1 % (0-10); Neutrophil # 6.55 X10^3/uL (2.7-7.7); Neutrophil % 76.7 % (47-70); POSITIVE COUNT NO; POSITIVE DIFFERENTIAL NO; POSITIVE MORPHOLOGY NO; Platelet Count 116 K/mm3 (150-450); RBC Distribution Width CV 13.5 % (11.6-14.6); RBC Distribution Width SD 44.9 fl (35.1-43.9); Red Blood Count 3.53 M/mm3 (4.2-5.4); White Blood Count 8.5 K/mm3 (4.4-11.0)
[2018-01-15] MEDS: Ipratropium/Albuterol Sulfate 3 ML AMPUL.NEB INHALATION ×3 (06:56→19:00)
[2018-01-15 07:14] LABS: Anion Gap 8 (5-15); BUN 15 mg/dL (7-18); BUN/Creat Ratio 23.5 RATIO (10-20); CPK Total, Creatine Kinase 975 U/L (26-192); Calcium,Total 7.9 mg/dL (8.5-10.1); Chloride 106 mmol/L (98-107); Creatinine, Serum 0.64 mg/dL (0.55-1.02); EST Glomerular Filtration Rate 95 mL/min (>60); Est Glom Filt Rate - Afr Amer 114 mL/min (>60); Estimated Creatinine Clearance 32.17 ml/min; Glucose 95 mg/dL (74-106); Potassium 3.8 mmol/L (3.5-5.1); Sodium Level 138 mmol/L (136-145)
[2018-01-15] MEDS: guaiFENesin 1,200 MG Tablet 1200 MG PO ×2 (09:21→21:06)
[2018-01-15] MEDS: Enoxaparin 40 MG/0.4 ML Syringe SC (09:21)
--- NOTE | 2018-01-15 09:40 | CASEMGMT ---
RN SAMUEL Face to Face with patient for initial transition planning/care coordination assessment. RN CM introduced self and role at [facility]. Patient sitting in chair, alert and oriented. Patient willing to participate in assessment and is able to answer all questions appropriately. Care providers, pharmacy, and demographics verified. Patient wishes to discharge home with possible HHC if needed. Patient states she has no further needs or concerns at this time. CM to follow for discharge planning needs that may arise. PCP: Kaya Dobbins Pharmacy: [facility] Insurance: [facility] Prescription Benefit: Silver [employer] Living Will/HPOA: Yes Daughter Tami Jaquez LNOK: Daughter Living Arrangements: Patient lives alone in 1 story house. Transportation: Self or neighbor DME/HHC: Shower chair, raised toilet seat, cane, grab bars, walker, and medical alert. Patient has had [facility] in the past. Would like HHC with [facility] if needed. Disposition Plan: Patient to discharge home with family and friend support and follow-up plans in place. Will monitor for need for HHC. Chana GONZALEZ, RN, CM
--- NOTE | 2018-01-15 13:02 | CASEMGMT ---
SW spoke w/pt in regard to POA/LW papers, she states she thought she brought the forms in. SW explained that they are not on file, SW asked pt to bring them in at another time, pt states understanding. RAFIQ Mcqueen, PET CAREGIVER
--- NOTE | 2018-01-15 14:53 | PCM.PN.HOSP ---
Patient Problems: Active and Suspected Problems Community acquired pneumonia (Suspected) Acute bronchitis (Acute) Subjective: Patient was admitted yesterday with productive cough, wheezing and subjective fever for last 3 days. Patient has greenish sputum, sore throat and generalized weakness suggestive of viral syndrome. 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 Vitals/I&O's: Vital Signs Temp Pulse Resp BP Pulse Ox 98.6 F 93 18 108/54 L 96 01/15/18 14:37 01/15/18 14:37 01/15/18 14:39 01/15/18 14:37 01/15/18 14:39 Oxygen Flow Rate (L/min) 2 Oxygen Delivery Method Room Air Weight: 138 lb 6.393 oz Body Mass Index (BMI) 26.1 Intake and Output for Last 24 Hours 01/13/18 01/14/18 01/15/18 23:59 23:59 23:59 Intake Total 918 / 918 956 / 956 Output Total 500 / 500 500 / 500 Balance 418 / 418 456 / 456 General: Alert, Oriented x3, Cooperative HEENT: Atraumatic, PERRLA, EOMI, Normocephalic Oral: - - No oropharyngeal exudate or erythema seen Neck: Supple, No JVD, Negative Carotid Bruits Lungs: Diminished - Bilaterally diffuse diminished, Rhonchi, Wheezes Cardiovascular: Regular rate, Regular Rhythm, Normal S1, Normal S2, No murmurs Abdomen: Bowel Sounds Present, Soft, Non Tender Extremities: No edema, Capillary Refill Less than 3 Seconds Skin: No rashes, No breakdown Musculoskeletal: No Tenderness to Palpation of Joints or Extremities Neurological: Cranial nerves II-XII grossly intact Psych/Mental Status: Normal Affect, Appropriate Microbiology Past 72 Hours 01/14/18 15:10 Sputum, Expectorated/Coughed Gram Stain - Final 01/14/18 15:10 Sputum, Expectorated/Coughed Respiratory Culture - Preliminary Appears to be normal respiratory marina. Further studies to follow. 01/14/18 12:52 Urine, Clean Catch Urine Culture - Final Mixed Gram Pos & Gram Neg Org 01/14/18 15:00 Mucosa - Nasopharyngeal Respiratory Panel (PCR) - Final Parainfluenza 2 01/14/18 12:52 Urine, Clean Catch Legionella Antigen - Final 01/14/18 12:52 Urine, Clean Catch Streptococcus pneumoniae Antigen (M - Final Laboratory Results 01/15/18 05:19: WBC 8.5, RBC 3.53 L, Hgb 10.8 L, Hct 32.5 L, MCV 92.1, MCH 30.6, MCHC 33.2, RDW 13.5, RDW Differential 44.9 H, Plt Count 116 L, MPV 10.2, Immature Gran % (Auto) 0.200, Neut % (Auto) 76.7 H, Lymph % (Auto) 12.9 L, [place] % (Auto) 10.1 H, Eos % (Auto) 0.0, Baso % (Auto) 0.1, Absolute Neuts (auto) 6.6, Absolute Lymphs (auto) 1.10, Total Counted Not Reportable 01/15/18 05:19: Sodium 138, Potassium 3.8, Chloride 106, Carbon Dioxide 24.0, Anion Gap 8, BUN 15, Creatinine 0.64, Estim Creat Clear Calc 32.17, Est GFR (MDRD) Af Amer 114, Est GFR (MDRD) Non-Af 95, BUN/Creatinine Ratio 23.5 H, Glucose 95, Calcium 7.9 L, Total Creatine Kinase 975 H Current Medications Acetaminophen (Tylenol) 650 mg PO Q6H PRN PRN PRN Reason: FEVER Last Admin: 01/15/18 02:39 Dose: 650 mg Albuterol Sulfate (Ventolin Aerosols) 2.5 mg INHALATION Q4H PRN PRN PRN Reason: SHORTNESS OF BREATH Albuterol/Ipratropium (Duoneb) 3 ml INHALATION Q6H.RT FORMERLY [facility], [facility] Stop: 01/19/18 14:45 Last Admin: 01/15/18 13:39 Dose: 3 ml Enoxaparin Sodium (Lovenox) 40 mg SC DAILY@1000 KHADIJAH Last Admin: 01/15/18 09:21 Dose: 40 mg Guaifenesin (Mucinex) 1,200 mg PO BID FORMERLY [facility], [facility] Last Admin: 01/15/18 09:21 Dose: 1,200 mg Sodium Chloride () 1,000 mls @ 100 mls/hr IV .Q10H KHADIJAH Last Admin: 01/15/18 11:38 Dose: 100 mls/hr Levofloxacin (Levaquin Iv) 750 mg in 150 mls @ 100 mls/hr IV Q48 FOR[facility], [facility] Sodium Chloride () 250 mls @ 15 mls/hr IV .[id number] PRN PRN Reason: SALINE FLUSH Magnesium Hydroxide (Milk Of Magnesia) 30 ml PO DAILY PRN PRN PRN Reason: Constipation Nutritional Formula (Lactose Free) (Ensure Enlive) 120 ml PO 4X/DAY FORMERLY [facility], [facility] Last Admin: 01/15/18 14:34 Dose: 120 ml Ondansetron HCl (Zofran) 4 mg IV Q8H PRN PRN PRN Reason: NAUSEA Sodium Chloride () 5 - 30 ml IV UD PRN PRN Reason: SALINE FLUSH Zolpidem Tartrate (Ambien (Generic)) 5 mg PO QHS PRN PRN PRN Reason: SLEEP Medical Necessity - Tobacco Use Smoking Status: Never smoker Assessment/Plan All Active Problems Acute bronchitis (Acute) This is an 82 years old female patient presented to the emergency department because of productive cough, wheezing, fever and weakness for 3 days and she was found to have acute bronchitis and clinically diagnosed probable community-acquired pneumonia and she is being admitted for treatment. #1 acute bronchitis secondary to parainfluenza 2/clinically suspected community-acquired pneumonia: Chest x-ray showed no obvious infiltrate. Her lactic acid was normal, no leukocytosis. Patient is empirically started on Levaquin. Respiratory panel is positive of parainfluenza 2. Urinary antigens are negative. Urine culture shows mixed gram-positive and negative organisms suggestive of contamination. Prelim Gram stain of sputum culture appears to be normal respiratory marina. WBC count improved. She did not already had symptoms more than 4 days and Tamiflu not indicated for Parainfluenza 2; discussed with Dr. Alcocer. Repeat chest x-ray does not show acute change since prior study. Continue DuoNeb every 6 hours, albuterol as needed, IV Levaquin, antitussives, incentive spirometer, PT OT evaluation and treatment. #2 probable mild rhabdomyolysis: Total creatine kinase is 952, patient was found in the floor for unknown period of time which is probably caused muscle damage. Plan IV fluid. Repeat CK is 975 #3 DVT prophylaxis: Subcu Lovenox. Microbiology Past 72 Hours 01/14/18 15:10 Sputum, Expectorated/Coughed Gram Stain - Final 01/14/18 15:10 Sputum, Expectorated/Coughed Respiratory Culture - Preliminary Appears to be normal respiratory marina. Further studies to follow. 01/14/18 12:52 Urine, Clean Catch Urine Culture - Final Mixed Gram Pos & Gram Neg Org 01/14/18 15:00 Mucosa - Nasopharyngeal Respiratory Panel (PCR) - Final Parainfluenza 2 01/14/18 12:52 Urine, Clean Catch Legionella Antigen - Final 01/14/18 12:52 Urine, Clean Catch Streptococcus pneumoniae Antigen (M - Final Laboratory Results 01/15/18 05:19: WBC 8.5, RBC 3.53 L, Hgb 10.8 L, Hct 32.5 L, MCV 92.1, MCH 30.6, MCHC 33.2, RDW 13.5, RDW Differential 44.9 H, Plt Count 116 L, MPV 10.2, Immature Gran % (Auto) 0.200, Neut % (Auto) 76.7 H, Lymph % (Auto) 12.9 L, [place] % (Auto) 10.1 H, Eos % (Auto) 0.0, Baso % (Auto) 0.1, Absolute Neuts (auto) 6.6, Absolute Lymphs (auto) 1.10, Total Counted Not Reportable 01/15/18 05:19: Sodium 138, Potassium 3.8, Chloride 106, Carbon Dioxide 24.0, Anion Gap 8, BUN 15, Creatinine 0.64, Estim Creat Clear Calc 32.17, Est GFR (MDRD) Af Amer 114, Est GFR (MDRD) Non-Af 95, BUN/Creatinine Ratio 23.5 H, Glucose 95, Calcium 7.9 L, Total Creatine Kinase 975 H Code Visit Inpatient E&M: 74352 Subs Hosp L2
--- NOTE | 2018-01-15 15:03 | PN_ITS ---
Patient Problems: Active and Suspected Problems Community acquired pneumonia (Suspected) Acute bronchitis (Acute) Subjective: Patient was admitted yesterday with productive cough, wheezing and subjective fever for last 3 days. Patient has greenish sputum, sore throat and generalized weakness suggestive of viral syndrome. 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 Vitals/I&O's: Vital Signs Temp Pulse Resp BP Pulse Ox 98.6 F 93 18 108/54 L 96 01/15/18 14:37 01/15/18 14:37 01/15/18 14:39 01/15/18 14:37 01/15/18 14:39 Oxygen Flow Rate (L/min) 2 Oxygen Delivery Method Room Air Weight: 138 lb 6.393 oz Body Mass Index (BMI) 26.1 Intake and Output for Last 24 Hours 01/13/18 01/14/18 01/15/18 23:59 23:59 23:59 Intake Total 918 / 918 956 / 956 Output Total 500 / 500 500 / 500 Balance 418 / 418 456 / 456 General: Alert, Oriented x3, Cooperative HEENT: Atraumatic, PERRLA, EOMI, Normocephalic Oral: - - No oropharyngeal exudate or erythema seen Neck: Supple, No JVD, Negative Carotid Bruits Lungs: Diminished - Bilaterally diffuse diminished, Rhonchi, Wheezes Cardiovascular: Regular rate, Regular Rhythm, Normal S1, Normal S2, No murmurs Abdomen: Bowel Sounds Present, Soft, Non Tender Extremities: No edema, Capillary Refill Less than 3 Seconds Skin: No rashes, No breakdown Musculoskeletal: No Tenderness to Palpation of Joints or Extremities Neurological: Cranial nerves II-XII grossly intact Psych/Mental Status: Normal Affect, Appropriate Microbiology Past 72 Hours 01/14/18 15:10 Sputum, Expectorated/Coughed Gram Stain - Final 01/14/18 15:10 Sputum, Expectorated/Coughed Respiratory Culture - Preliminary Appears to be normal respiratory marina. Further studies to follow. 01/14/18 12:52 Urine, Clean Catch Urine Culture - Final Mixed Gram Pos & Gram Neg Org 01/14/18 15:00 Mucosa - Nasopharyngeal Respiratory Panel (PCR) - Final Parainfluenza 2 01/14/18 12:52 Urine, Clean Catch Legionella Antigen - Final 01/14/18 12:52 Urine, Clean Catch Streptococcus pneumoniae Antigen (M - Final Laboratory Results 01/15/18 05:19: WBC 8.5, RBC 3.53 L, Hgb 10.8 L, Hct 32.5 L, MCV 92.1, MCH 30.6, MCHC 33.2, RDW 13.5, RDW Differential 44.9 H, Plt Count 116 L, MPV 10.2, Immature Gran % (Auto) 0.200, Neut % (Auto) 76.7 H, Lymph % (Auto) 12.9 L, [place] % (Auto) 10.1 H, Eos % (Auto) 0.0, Baso % (Auto) 0.1, Absolute Neuts (auto) 6.6, Absolute Lymphs (auto) 1.10, Total Counted Not Reportable 01/15/18 05:19: Sodium 138, Potassium 3.8, Chloride 106, Carbon Dioxide 24.0, Anion Gap 8, BUN 15, Creatinine 0.64, Estim Creat Clear Calc 32.17, Est GFR (MDRD) Af Amer 114, Est GFR (MDRD) Non-Af 95, BUN/Creatinine Ratio 23.5 H, Glucose 95, Calcium 7.9 L, Total Creatine Kinase 975 H Current Medications Acetaminophen (Tylenol) 650 mg PO Q6H PRN PRN PRN Reason: FEVER Last Admin: 01/15/18 02:39 Dose: 650 mg Albuterol Sulfate (Ventolin Aerosols) 2.5 mg INHALATION Q4H PRN PRN PRN Reason: SHORTNESS OF BREATH Albuterol/Ipratropium (Duoneb) 3 ml INHALATION Q6H.RT [facility] Stop: 01/19/18 14:45 Last Admin: 01/15/18 13:39 Dose: 3 ml Enoxaparin Sodium (Lovenox) 40 mg SC DAILY@1000 KHADIJAH Last Admin: 01/15/18 09:21 Dose: 40 mg Guaifenesin (Mucinex) 1,200 mg PO BID [facility] Last Admin: 01/15/18 09:21 Dose: 1,200 mg Sodium Chloride () 1,000 mls @ 100 mls/hr IV .Q10H KHADIJAH Last Admin: 01/15/18 11:38 Dose: 100 mls/hr Levofloxacin (Levaquin Iv) 750 mg in 150 mls @ 100 mls/hr IV Q48 [facility] Sodium Chloride () 250 mls @ 15 mls/hr IV .[id number] PRN PRN Reason: SALINE FLUSH Magnesium Hydroxide (Milk Of Magnesia) 30 ml PO DAILY PRN PRN PRN Reason: Constipation Nutritional Formula (Lactose Free) (Ensure Enlive) 120 ml PO 4X/DAY [facility] Last Admin: 01/15/18 14:34 Dose: 120 ml Ondansetron HCl (Zofran) 4 mg IV Q8H PRN PRN PRN Reason: NAUSEA Sodium Chloride () 5 - 30 ml IV UD PRN PRN Reason: SALINE FLUSH Zolpidem Tartrate (Ambien (Generic)) 5 mg PO QHS PRN PRN PRN Reason: SLEEP Medical Necessity - Tobacco Use Smoking Status: Never smoker Assessment/Plan All Active Problems Acute bronchitis (Acute) This is an 82 years old female patient presented to the emergency department because of productive cough, wheezing, fever and weakness for 3 days and she was found to have acute bronchitis and clinically diagnosed probable community- acquired pneumonia and she is being admitted for treatment. #1 acute bronchitis secondary to parainfluenza 2/clinically suspected community- acquired pneumonia: Chest x-ray showed no obvious infiltrate. Her lactic acid was normal, no leukocytosis. Patient is empirically started on Levaquin. Respiratory panel is positive of parainfluenza 2. Urinary antigens are negative. Urine culture shows mixed gram-positive and negative organisms suggestive of contamination. Prelim Gram stain of sputum culture appears to be normal respiratory marina. WBC count improved. She did not already had symptoms more than 4 days and Tamiflu not indicated for Parainfluenza 2; discussed with Dr. Alcocer. Repeat chest x-ray does not show acute change since prior study. Continue DuoNeb every 6 hours, albuterol as needed, IV Levaquin, antitussives, incentive spirometer, PT OT evaluation and treatment. #2 probable mild rhabdomyolysis: Total creatine kinase is 952, patient was found in the floor for unknown period of time which is probably caused muscle damage. Plan IV fluid. Repeat CK is 975 #3 DVT prophylaxis: Subcu Lovenox. Microbiology Past 72 Hours 01/14/18 15:10 Sputum, Expectorated/Coughed Gram Stain - Final 01/14/18 15:10 Sputum, Expectorated/Coughed Respiratory Culture - Preliminary Appears to be normal respiratory marina. Further studies to follow. 01/14/18 12:52 Urine, Clean Catch Urine Culture - Final Mixed Gram Pos & Gram Neg Org 01/14/18 15:00 Mucosa - Nasopharyngeal Respiratory Panel (PCR) - Final Parainfluenza 2 01/14/18 12:52 Urine, Clean Catch Legionella Antigen - Final 01/14/18 12:52 Urine, Clean Catch Streptococcus pneumoniae Antigen (M - Final Laboratory Results 01/15/18 05:19: WBC 8.5, RBC 3.53 L, Hgb 10.8 L, Hct 32.5 L, MCV 92.1, MCH 30.6, MCHC 33.2, RDW 13.5, RDW Differential 44.9 H, Plt Count 116 L, MPV 10.2, Immature Gran % (Auto) 0.200, Neut % (Auto) 76.7 H, Lymph % (Auto) 12.9 L, [place] % (Auto) 10.1 H, Eos % (Auto) 0.0, Baso % (Auto) 0.1, Absolute Neuts (auto) 6.6, Absolute Lymphs (auto) 1.10, Total Counted Not Reportable 01/15/18 05:19: Sodium 138, Potassium 3.8, Chloride 106, Carbon Dioxide 24.0, Anion Gap 8, BUN 15, Creatinine 0.64, Estim Creat Clear Calc 32.17, Est GFR (MDRD) Af Amer 114, Est GFR (MDRD) Non-Af 95, BUN/Creatinine Ratio 23.5 H, Glucose 95, Calcium 7.9 L, Total Creatine Kinase 975 H Code Visit Inpatient E&M: [id number] Subs Hosp L2
[2018-01-16 02:24] VITALS: BP 100/78; PULSE 80; RESP 18; TEMP 37.1; O2SAT 93
[2018-01-16 03:45] VITALS: PULSE 80
[2018-01-16] MEDS: 0.9% Normal Saline 1,000 ML 100 ML IV (06:17)
[2018-01-16] MEDS: Acetaminophen 325 MG Tablet 650 MG PO (06:21)
[2018-01-16 07:28] VITALS: PULSE 74; RESP 20; O2SAT 97
[2018-01-16] MEDS: Ipratropium/Albuterol Sulfate 3 ML AMPUL.NEB INHALATION ×2 (07:30→13:52)
[2018-01-16 08:00] VITALS: BP 118/52; PULSE 102; PULSE 99; RESP 20; TEMP 36.9; O2SAT 93
[2018-01-16] MEDS: Enoxaparin 40 MG/0.4 ML Syringe SC (09:17)
[2018-01-16] MEDS: guaiFENesin 1,200 MG Tablet 1200 MG PO (09:22)
[2018-01-16] MEDS: levoFLOXacin IV 750 MG/150 ML BAG 100 MG IV (09:23)
--- NOTE | 2018-01-16 10:40 | DS.PCM_ITS ---
Discharge Date and Diagnosis - Problem List Patient Problems: Active and Suspected Problems Community acquired pneumonia (Suspected) Acute bronchitis (Acute) Date of Admission: 01/14/18 Date of Discharge: 01/16/18 - Primary Discharge Diagnosis Active and Suspected Problems Acute bronchitis (Acute) #1 acute viral bronchitis/bronchiolitis secondary to parainfluenza 2, may be superimposed bacterial infection: Pneumonia ruled out #2 probable mild rhabdomyolysis: Hospital Course and Treatment Operations: None Summary of Care Provided: [] This is an 82 years old female patient presented to the emergency department because of productive cough, wheezing, fever and weakness for 3 days and she was found to have acute bronchitis and clinically diagnosed probable community- acquired pneumonia and she is being admitted for treatment. #1 acute bronchitis/bronchiolitis secondary to parainfluenza 2, may be superimposed bacterial infection: First chest x-ray showed no obvious infiltrate. Her lactic acid was normal, no leukocytosis. Patient is empirically started on Levaquin. Respiratory panel is positive of parainfluenza 2. Urinary antigens are negative. Urine culture shows mixed gram-positive and negative organisms suggestive of contamination. Final sputum culture reported as mixed normal respiratory marina. WBC count improved. She did not already had symptoms more than 4 days and Tamiflu not indicated for Parainfluenza 2; discussed with Dr. Alcocer. Repeat chest x-ray does not show acute change since prior study. Overall it seems patient had acute viral bronchitis with superimposed bacterial infection. Pneumonia ruled out. The patient got better on treatment with DuoNeb every 6 hours, albuterol as needed, IV Levaquin, antitussives, incentive spirometer, PT OT evaluation and treatment. Patient is discharged on 2 more days of Levaquin to complete a total of 5 days of Levaquin. #2 probable mild rhabdomyolysis: Total creatine kinase is 952, patient was found in the floor for unknown period of time which is probably caused muscle damage. Plan IV fluid. Repeat CK is 975. Patient is able to walk around the nursing station with the help of physical therapist. Mild generalized weakness although she felt much better. No further therapy recommended by PT. #3 DVT prophylaxis: Subcu Lovenox. Discharged home. Discharge medication reconciliation done. Patient is discharged on Levaquin and symptomatic treatment with Mucinex and Robitussin. Patient denies chronic lung disease including COPD/asthma/interstitial lung disease or pneumoconiosis. Discharge medication reconciliation done. Discharge follow-up instructions completed. Total time spent, exact 35 minutes on discharge meds reconciliation, examination, review of imaging and blood test and discussion with the patient on follow-up instructions. Clinical Impression(s) from Imaging Studies Chest X-Ray 01/14/18 11:55 IMPRESSION: No acute cardiopulmonary disease Brain CT 01/14/18 12:04 IMPRESSION: Chronic involutional changes of the brain. Chest X-Ray 01/15/18 05:55 IMPRESSION: Hyperinflation. There has been no change since prior study. Patient Problems: Active and Suspected Problems Community acquired pneumonia (Suspected) Acute bronchitis (Acute) - Physical Exam General: Alert, Oriented x3, Cooperative HEENT: Atraumatic, PERRLA, EOMI, Normocephalic Neck: Supple, No JVD, Negative Carotid Bruits Lungs: Clear to auscultation, No rhonchi, No wheeze, No rales, Diminished Cardiovascular: Regular rate, Regular Rhythm, Normal S1, Normal S2, No murmurs Abdomen: Bowel Sounds Present, Soft, Non Tender Extremities: No edema, Capillary Refill Less than 3 Seconds Skin: No rashes, No breakdown Musculoskeletal: No Tenderness to Palpation of Joints or Extremities, Arthritic Changes Neurological: Cranial nerves II-XII grossly intact Psych/Mental Status: Normal Affect, Appropriate Vital Signs Temp Pulse Resp BP Pulse Ox 98.4 F 99 20 H 118/52 L 93 01/16/18 08:00 01/16/18 08:00 01/16/18 08:00 01/16/18 08:00 01/16/18 08:00 Oxygen Flow Rate (L/min) 2 Oxygen Delivery Method Room Air Weight: 138 lb 6.393 oz Body Mass Index (BMI) 26.1 Intake and Output for Last 24 Hours 01/14/18 01/15/18 01/16/18 23:59 23:59 23:59 Intake Total 918 / 918 2652 / 2652 597 / 597 Output Total 500 / 500 1000 / 1000 1000 / 1000 Balance 418 / 418 1652 / 1652 -403 / -403 Microbiology Past 72 Hours 01/14/18 15:10 Gram Stain - Final Sputum, Expectorated/Coughed Respiratory Culture - Final 01/14/18 12:52 Urine Culture - Final Urine, Clean Catch Mixed Gram Pos & Gram Neg Org 01/14/18 15:00 Respiratory Panel (PCR) - Final Mucosa - Nasopharyngeal Parainfluenza 2 01/14/18 12:52 Legionella Antigen - Final Urine, Clean Catch 01/14/18 12:52 Streptococcus pneumoniae Antigen (M - Final Urine, Clean Catch Discharge Activity: May Not Drive Call your doctor if you observe: Fever of 101 or Higher, Inability to have a bowel movement, Shortness of breath, Dizziness, Fainting spells, Swelling in the ankles, Chest pain, Calf discomfort Home Medications: Medications to take at Discharge Multivitamin [Multiple Vitamins] 1 each PO DAILY 11/29/17 Calcium Carbonate [Calcium] 600 mg PO DAILY 01/14/18 Cholecalciferol (VIT D3) 1 tab PO DAILY 01/14/18 Guaifenesin [Mucinex] 600 mg PO BID #14 tab 01/16/18 Guaifenesin/Dextromethorphan [Robitussin Cough-Chest Dm Liq] 10 ml PO Q4H PRN PRN #1 liquid 01/16/18 Levofloxacin [Levaquin] 500 mg PO DAILY #2 tablet 01/16/18 Following Prescrptions Were Given to Patient: Guaifenesin/Dextromethorphan [Robitussin Cough-Chest Dm Liq] 10 ml PO Q4H PRN PRN #1 liquid PRN Reason: Cough Levofloxacin [Levaquin] 500 mg PO DAILY #2 tablet Guaifenesin [Mucinex] 600 mg PO BID #14 tab Primary Care Physician: Valarie Kirkpatrick MD [Primary Care Provider] - Please follow up with your Primary Care Physician in: in 2 week Medical Necessity - Tobacco Use Smoking Status: Never smoker Meaningful Use Info Meaningful Use Diagnoses (Choose all that apply): None applicable Code Visit Inpatient E&M: 79604 Disch Hosp
--- NOTE | 2018-01-16 10:40 | DCINST_ITS ---
- Discharge Diagnoses Current Active Problems: Current Active and Chronic Problems Acute bronchitis (Acute) You will use the following diet at home:: Regular Your food should be the consistency of: Regular Discharge Activity: May Not Drive Call your doctor if you observe: Fever of 101 or Higher, Inability to have a bowel movement, Shortness of breath, Dizziness, Fainting spells, Swelling in the ankles, Chest pain, Calf discomfort Allergies/Adverse Reactions: Allergies No Known Allergies Allergy (Verified 01/14/18 10:41) Medications to take at Discharge Multivitamin [Multiple Vitamins] 1 each PO DAILY 11/29/17 Calcium Carbonate [Calcium] 600 mg PO DAILY 01/14/18 Cholecalciferol (VIT D3) 1 tab PO DAILY 01/14/18 Guaifenesin [Mucinex] 600 mg PO BID #14 tab 01/16/18 Guaifenesin/Dextromethorphan [Robitussin Cough-Chest Dm Liq] 10 ml PO Q4H PRN PRN #1 liquid 01/16/18 Levofloxacin [Levaquin] 500 mg PO DAILY #2 tablet 01/16/18 The following prescriptions were given: Guaifenesin/Dextromethorphan [Robitussin Cough-Chest Dm Liq] 10 ml PO Q4H PRN PRN #1 liquid PRN Reason: Cough Levofloxacin [Levaquin] 500 mg PO DAILY #2 tablet Guaifenesin [Mucinex] 600 mg PO BID #14 tab Primary Care Physician: Valarie Kirkpatrick MD [Primary Care Provider] - Please follow up with your Primary Care Physician in: in 2 week Test Results: Test results from this visit will be discussed in further detail at your follow- up appointment, if applicable.
[2018-01-16 13:52] VITALS: PULSE 84; RESP 18
[2018-01-16 17:15] VITALS: BP 103/51; PULSE 85; RESP 16; TEMP 36.8; O2SAT 98
--- NOTE | 2018-01-16 17:27 | NURSING ---
WRITTEN ORDER GIVEN FOR TOTAL CREATININE KINASE FOR PT TO FOLLOW UP WITH PCP.
== END 2018-01-16 17:15 | disposition home or self-care (01) | DRG 202 ==
LOC: ED 14:12 → MS3 14:22
PROVIDERS: Admitting Provider Hospitalist; Emergency Provider Emergency Medicine; Family Provider Internal Medicine; PCP Internal Medicine; Visit Provider Family Medicine
DX: J20.4 Acute bronchitis due to parainfluenza virus (principal); M62.82 Rhabdomyolysis; J20.8 Acute bronchitis due to other specified organisms
CPT/HCPCS: 36415; 70450; 71046; 80048; 81001; 82550; 83605; 85025; 87040; 87070; 87086; 87088; 87205; 87449; 87633; 94640; 94667; 94668; 97162; 97165; 97530; 97535; 97802; 99285; J7030; J7040; A4216

== ENCOUNTER 2018-04-05 16:45 | Observation (INO) | payer MEDICARE, OTHER, SELFPAY ==
[2018-04-05 16:46] VITALS: BP 145/99; PULSE 63; RESP 17; TEMP 36.4; O2SAT 99; BMI 26.4
--- NOTE | 2018-04-05 17:15 | CT_ITS ---
STUDY: CT BRAIN WITHOUT CONTRAST REASON FOR EXAM: Female, 83 years old. Dizziness since 3:00 PM today RADIATION DOSAGE (If Supplied By Facility): CTDIvol = ( 44.99 ) mGy, DLP = ( 745.49 ) mGycm TECHNIQUE: Transaxial CT imaging of the brain was performed without administration of intravenous contrast material. Individualized dose optimization techniques were used for this CT. COMPARISON: 01/14/2018 FINDINGS: Normal soft tissue structures. Normal calvarium. There is mild cerebral atrophy with widening of the extra-axial spaces and ventricular dilatation. There are areas of decreased attenuation within the white matter tracts of the supratentorial brain, consistent with microvascular disease changes. Normal basal ganglia and thalami. Normal brainstem. Normal cerebellum. There is no intracranial hemorrhage. There are no findings of an acute ischemic infarction. Normal visualized paranasal sinuses. CT/Brain/Head without Contrast IMPRESSION: 1. No acute intracranial hemorrhage or mass effect. 2. Central parenchymal volume loss. White matter changes that are nonspecific but most commonly associated with chronic small vessel ischemic disease. Electronically Signed: Derrek Clifford MD at 18:43 EST , Service support ,
--- NOTE | 2018-04-05 17:16 | EKG12_ITS ---
Test Reason : DIZZINESS Blood Pressure : / mmHG Vent. Rate : 069 BPM Atrial Rate : 069 BPM P-R Int : 186 ms QRS Dur : 080 ms QT Int : 400 ms P-R-T Axes : 057 031 060 degrees QTc Int : 428 ms Normal sinus rhythm Normal ECG Confirmed by STEVEN CURTIS, MICHEL ([id number]), features editor REMBERTO SCHNEIDER ([id number]) on 04/08/2018 9:10:14 AM Referred By: SAM Confirmed By:MICHEL HARRIS MD
--- NOTE | 2018-04-05 17:24 | ED.DCSUM_ITS ---
- ER Visit Summary Date of Service: 04/05/18 Chief Complaint: Dizziness History of Present Illness: The patient is a 83 F who had sudden onset of vertigo symptoms at 3:00 this afternoon while she was sitting upright in a chair. She denies any sudden head movements prior to the incident. She states that she has had vertigo in the past and this does feel similar. She has nausea. She was given Zofran by EMS. 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 Physical Examination: Vital signs unremarkable. Patient sitting upright in bed with her eyes closed. She is in no acute distress. Head neck examination unremarkable. Heart is regular rate and rhythm. Lung sounds are clear. Abdomen is soft nontender. Neuro exam reveals no focal deficits. She does have intact finger to nose testing. Test Results: EKG is sinus at 69 with no sign of acute ischemia. CBC and chemistry studies are grossly unremarkable. Troponin is negative. CT head shows no acute hemorrhage or mass-effect. There is nonspecific white matter changes. Emergency Department Course and Treatment: Patient received IV fluids, Zofran, and 0.25 mg of IV Ativan. On repeat evaluation she is resting comfortably. She does report improvement in her symptoms, but when sitting upright she states things are starting to swim again. She does live alone and I have concerns about her going home by herself. She will be admitted overnight for observation and further treatment. Treatment Plan: [] Disposition: Admit Impression: Vertigo This note was generated with [employer] dictation software. It may contain incorrect words, spelling, and punctuation that were not noted in review of the chart prior to signing ED Disposition - Plan for ED Patient: Chief Complaint: Dizziness Referrals: Valarie Kirkpatrick MD [Primary Care Provider] -
[2018-04-05 17:39] LABS: Absolute Lymphocyte Count 1.35 X10^3/ul (0.83-4.51); Absolute Neutrophil Count 5.7 X10^3/uL (2.0-7.7); Basophil# 0.02 X10^3/uL; Basophil% 0.3 % (0-1); Eosinophil# 0.09 X10^3/uL; Eosinophils% 1.2 % (0-5); Hematocrit 38.2 % (37-47); Hemoglobin 12.3 g/dl (12.0-15.0); Lymphocyte # 1.35 X10^3/ul (4.0); Lymphocyte % 17.5 % (19-41); Mean Corp Hgb Conc 32.2 g/gl (32-36); Mean Corpuscular Hgb 30.1 pg (27.0-32.0); Mean Corpuscular Volume 93.6 fL (81-99); Mean Platelet Vol. 9.6 fl (6.2-12.0); Monocyte# 0.52 X10^3/uL; Monocyte% 6.8 % (0-10); Neutrophil # 5.71 X10^3/uL (2.7-7.7); Neutrophil % 74.1 % (47-70); Platelet Count 197 K/mm3 (150-450); RBC Distribution Width CV 13.5 % (11.6-14.6); RBC Distribution Width SD 46.3 fl (35.1-43.9); Red Blood Count 4.08 M/mm3 (4.2-5.4); White Blood Count 7.7 K/mm3 (4.4-11.0)
[2018-04-05 17:40] LABS: POSITIVE COUNT NO; POSITIVE DIFFERENTIAL NO; POSITIVE MORPHOLOGY NO
[2018-04-05] MEDS: Ondansetron 4 MG/2 ML Vial IV (17:42)
[2018-04-05] MEDS: 0.9% Normal Saline 1,000 ML 150 ML IV (17:42)
[2018-04-05] MEDS: LORazepam 2 MG/ML Syringe 0.25 MG IV (17:42)
[2018-04-05 17:55] LABS: Anion Gap 8 (5-15); BUN 20 mg/dL (7-18); BUN/Creat Ratio 28.6 RATIO (10-20); Calcium,Total 9.2 mg/dL (8.5-10.1); Chloride 104 mmol/L (98-107); EST Glomerular Filtration Rate 85 mL/min (>60); Est Glom Filt Rate - Afr Amer 103 mL/min (>60); Glucose 116 mg/dL (74-106); Sodium Level 139 mmol/L (136-145)
[2018-04-05 18:46] VITALS: BP 106/53; PULSE 63; RESP 18; O2SAT 95
--- NOTE | 2018-04-05 19:28 | PCM.HP.STD ---
Problem List (1) Vertigo Status: Acute History of Present Illness Date of Admission: 04/05/18 Chief Complaint: vertigo The patient is a 83 year old F with a significant history of CVA essential tremor and vertigo who presented with sudden onset vertigo whiles sitting and reading a book. Patient was brought to the emergency department by paramedics. She describes the vertigo as the room spinning. Her symptoms started about 2 hours prior to presentation. Associated with symptom was nausea and vomiting. She denies any hearing loss, tinnitus, recent cold; urinary symptoms; hoarseness or slurry speech.. The emergency department patient was given Zofran and Ativan. Because patient lives alone emergency department doctor did not feel comfortable sending patient home. At the time of my evaluation patient denies vertigo. Importantly she was admitted to the hospital on 11/29/2017 and discharged on 11/30/2017 for vertigo. Past Medical History Medical History: Medical History (Last Updated 04/05/18 @ 20:08 by Palmer Escamilla MD) Essential tremor G25.0 Allergies No Known Allergies Allergy (Verified 04/05/18 16:53) Home Medications: Ambulatory Orders Medication Instructions Recorded Multivitamin [Multiple Vitamins] 1 each PO DAILY 11/29/17 Calcium Carbonate [Calcium] 600 mg PO DAILY 01/14/18 Cholecalciferol (VIT D3) 1 tab PO DAILY 01/14/18 Surgical History: - - Surgery for fracture of the right leg including right knee and right ankle. Surgery of right wrist with leidy placed. Psychiatric History: No pertinent psych hx [employer] History: No pertinent [employer] history Lives: Alone Smoking Status: Never smoker Alcohol: Occasional - *Family History Maternal History Items: Diabetes - Her sister has diabetes, Pulmonary Disease - She reported that her mother had pulmonary fibrosis. Paternal History Items: Heart Disease Review of Systems Constitutional: Denies: Chills, Fever, Weight Change HEENT: Denies: Head Aches, Sinus Congestion, Sinus Drainage Cardiovascular: Denies: Chest Pain, Palpitations Respiratory: Denies: Cough, Shortness of breath at rest, Sputum production Gastrointestinal: Reports: Nausea, Vomiting. Denies: Abdominal Pain Genitourinary: Denies: Dysuria Musculoskeletal: Denies: Joint Pain, Joint Tenderness Skin: Denies: Rash, Wounds Neurological: Reports: Tremor - Chronic. Denies: Focal weakness, Numbness, Tingling Psychiatric: Denies: Anxiety, Depression, Homicidal Ideations, Suicidal Ideations Hematologic/ Lymphatic: Denies: Easy Bruising, Easy Bleeding VTE Information - Inpt Only VTE Present on Admission: No VTE Mechan Device Prophylaxis: None VTE Pharm Prophylaxis ordered?: Yes Patient Problems: Active and Suspected Problems (Last Updated 04/05/18 @ 20:08 by Palmer Escamilla MD) Vertigo (Acute) - Physical Exam General: Alert, Oriented x3, Cooperative HEENT: Atraumatic, PERRLA, EOMI, Normocephalic Neck: Supple, No JVD, Negative Carotid Bruits Lungs: Clear to auscultation, Normal air movement Cardiovascular: Regular rate, No murmurs Abdomen: Bowel Sounds Present, Soft, Non Tender Extremities: No edema, Capillary Refill Less than 3 Seconds Skin: No rashes, No breakdown Musculoskeletal: No Tenderness to Palpation of Joints or Extremities Neurological: Neuro grossly intact, - - Courtney-Hallpike maneuver did not show any nystagmus or vertigo. Psych/Mental Status: Normal Affect, Appropriate Vital Signs Temp Pulse Resp BP Pulse Ox 97.5 F L 63 18 106/53 L 95 04/05/18 16:46 04/05/18 18:46 04/05/18 18:46 04/05/18 18:46 04/05/18 18:46 Oxygen Delivery Method Room Air Weight: 63.503 kg Body Mass Index (BMI) 26.4 Laboratory Tests Past 24 Hrs 04/05/18 04/05/18 17:25 17:25 WBC 7.7 RBC 4.08 L Hgb 12.3 Hct 38.2 MCV 93.6 MCH 30.1 MCHC 32.2 RDW 13.5 RDW Differential 46.3 H Plt Count 197 MPV 9.6 Immature Gran % (Auto) 0.100 Neut % (Auto) 74.1 H Lymph % (Auto) 17.5 L [place] % (Auto) 6.8 Eos % (Auto) 1.2 Baso % (Auto) 0.3 Absolute Neuts (auto) 5.7 Absolute Lymphs (auto) 1.35 Total Counted Not Reportable Sodium 139 Potassium 4.0 Chloride 104 Carbon Dioxide 27.0 Anion Gap 8 BUN 20 H Creatinine 0.70 Estim Creat Clear Calc 31.60 Est GFR (MDRD) Af Amer 103 Est GFR (MDRD) Non-Af 85 BUN/Creatinine Ratio 28.6 H Glucose 116 H Calcium 9.2 Troponin I < 0.015 Assessment/Plan All Active Problems (Last Updated 04/05/18 @ 20:08 by Palmer Escamilla MD) Acute bronchitis (Resolved) Community acquired pneumonia (Resolved) Vertigo (Acute) The patient is a 83 year old F with a significant history of CVA essential tremor and vertigo who presented with sudden onset vertigo whiles sitting and reading a book. Vertigo Review of old records showed that patient had an MRI on 11/29/2017. At that time the MRI showed cystic structures in the bilateral occipital horns, larger and slightly expansile on the right. Contrast enhanced MRI was recommended at that time for further evaluation. Her vertigo is unlikely BPPV since she was sitting reading and her symptoms occurred. Unlikely vestibular neuritis or labyrinthitis since she denies recent infection. Also this is no classic for M?ni?re disease as he does not have hearing loss or tinnitus. Will rule out posterior circulation stroke and vertebrobasilar insufficiency Order MRI/MRA of head and neck with contrast. Meclizine 3 times daily PRN for vertigo. If her symptoms persist with meclizine consider adding Valium. She received IV fluids maintenance hydration at emergency department. We will continue gentle IV fluid hydration for probable dehydration. Her BUN was mildly elevated at 20 Vestibular rehab to be started inpatient; and possibly continuing outpatient if a central cause of vertigo is ruled out and if her symptoms persist.. DVT prophylaxis Subcutaneous Lovenox ordered.
[2018-04-05 20:00] VITALS: BP 130/64; PULSE 72; RESP 12; O2SAT 92
[2018-04-05 20:25] VITALS: BP 130/64; PULSE 72; RESP 16; O2SAT 93
[2018-04-05 21:09] VITALS: BMI 27.0
[2018-04-05 21:18] VITALS: BMI 27.0
[2018-04-05 21:35] VITALS: BP 123/63; PULSE 72; RESP 16; TEMP 36.6; O2SAT 96
[2018-04-05] MEDS: 0.9% NaCl Peripheral Flush Adult/Peds IV (21:46)
[2018-04-05] MEDS: 0.9% Normal Saline 1,000 ML 75 ML IV (21:46)
[2018-04-06 04:42] VITALS: BP 104/54; PULSE 72; RESP 16; TEMP 37.1; O2SAT 97
[2018-04-06 09:00] VITALS: BP 107/62; PULSE 69; RESP 18; TEMP 36.4; O2SAT 98
[2018-04-06] MEDS: Multivitamins,Therapeutic Tablet 1 TABLET PO (09:15)
[2018-04-06] MEDS: Calcium (Elemental) 500 MG Tablet PO (09:15)
--- NOTE | 2018-04-06 09:54 | DCINST_ITS ---
- Discharge Diagnoses Current Active Problems: Current Active and Chronic Problems (Last Updated 04/05/18 @ 20:08 by Palmer Escamilla MD) Vertigo (Acute) You will use the following diet at home:: No restrictions Your food should be the consistency of: Regular Your liquids should be the consistency of: Regular/Thin Discharge Activity: Return to Normal Activity Weight Bearing Status: Full weight bearing Additional Instructions: Recommend taking one 81 mg aspirin daily Allergies/Adverse Reactions: Allergies No Known Allergies Allergy (Verified 04/05/18 16:53) Medications to take at Discharge Multivitamin [Multiple Vitamins] 1 each PO DAILY 11/29/17 Calcium Carbonate [Calcium] 600 mg PO DAILY 01/14/18 Cholecalciferol (VIT D3) 1 tab PO DAILY 01/14/18 Diazepam [Valium] 2 mg PO 4X/DAY PRN PRN #20 tab 04/06/18 Ondansetron HCl [Zofran] 4 mg PO 4X/DAY PRN PRN #20 tab 04/06/18 The following prescriptions were given: Diazepam [Valium] 2 mg PO 4X/DAY PRN PRN #20 tab PRN Reason: Dizziness Ondansetron HCl [Zofran] 4 mg PO 4X/DAY PRN PRN #20 tab PRN Reason: Nausea Primary Care Physician: Valarie Kirkpatrick MD [Primary Care Provider] - Please follow up with your Primary Care Physician in: in 2 weeks Test Results: Test results from this visit will be discussed in further detail at your follow- up appointment, if applicable.
--- NOTE | 2018-04-06 10:34 | NURSING ---
arranged transportation home via [employer] service as pt did not have ride home available. approved by supervisor maintenance and custodians.
--- NOTE | 2018-04-15 09:20 | DS.PCM_ITS ---
Discharge Date and Diagnosis Date of Admission: 04/05/18 Date of Discharge: 04/06/18 - Primary Discharge Diagnosis #1 acute vertigo #2 cerebral vascular disease with old lacunar infarct noted and left cerebellar hemisphere on 11/29/17 Hospital Course and Treatment Operations: None Procedures: None Summary of Care Provided: The patient is a 83 year old F was seen in the emergency room at [facility] with chief complaint of dizziness. Workup in the emergency room included an EKG which showed a normal sinus rhythm without ischemic changes, CBC and chemistry studies were unremarkable, troponin was negative, CT of the head showed no acute hemorrhage or mass-effect. Patient was given IV fluids and Zofran and IV Ativan in the emergency room, she reported improvement in her symptoms of dizziness but she was unable to ambulate and was placed in observation status on MedSurg 2, she received oral Valium for her vertiginous symptoms and this helped the patient. On 04/06/18, patient was seen and examined and felt to be in stable condition for discharge home: On examination she appeared in good health and spirits. Vital signs as documented. Skin warm and dry and without overt rashes. Neck without JVD. Lungs clear. Heart exam notable for regular rhythm, normal sounds and absence of murmurs, rubs or gallops. Abdomen unremarkable and without evidence of organomegaly, masses, or abdominal aortic enlargement. Extremities nonedematous. Neuro: Cranial nerves II through XII are grossly intact, no focal motor deficits were noted, sensation to light touch and pinprick is intact. Psych: Patient is alert and oriented x3, she does not appear anxious or depressed Final diagnosis was acute vertigo. - Physical Exam Vital Signs Temp Pulse Resp BP Pulse Ox 97.5 F L 69 18 107/62 98 04/06/18 09:00 04/06/18 09:00 04/06/18 09:00 04/06/18 09:00 04/06/18 09:00 Oxygen Delivery Method Room Air Weight: 64.9 kg Body Mass Index (BMI) 27.0 Discharge Activity: Return to Normal Activity Weight Bearing Status: Full weight bearing Home Medications: Medications to take at Discharge Multivitamin [Multiple Vitamins] 1 each PO DAILY 11/29/17 Calcium Carbonate [Calcium] 600 mg PO DAILY 01/14/18 Cholecalciferol (VIT D3) 1 tab PO DAILY 01/14/18 Diazepam [Valium] 2 mg PO 4X/DAY PRN PRN #20 tab 04/06/18 Ondansetron HCl [Zofran] 4 mg PO 4X/DAY PRN PRN #20 tab 04/06/18 Following Prescrptions Were Given to Patient: Diazepam [Valium] 2 mg PO 4X/DAY PRN PRN #20 tab PRN Reason: Dizziness Ondansetron HCl [Zofran] 4 mg PO 4X/DAY PRN PRN #20 tab PRN Reason: Nausea Primary Care Physician: Valarie Kirkpatrick MD [Primary Care Provider] - Please follow up with your Primary Care Physician in: in 2 weeks Disposition: Home Minutes spent on discharge:: 25 Patient Condition:: Stable Medical Necessity - Tobacco Use Smoking Status: Never smoker Meaningful Use Info Meaningful Use Diagnoses (Choose all that apply): None applicable Code Visit OBSV E&M: 73652 Observation care discharge
== END 2018-04-06 10:40 | disposition home or self-care (01) ==
LOC: ED 17:54 → MS2 20:29
PROVIDERS: Admitting Provider Hospitalist; Emergency Provider Emergency Medicine; Family Provider Internal Medicine; PCP Internal Medicine; Visit Provider Internal Medicine
DX: R42 Dizziness and giddiness (principal); Z86.73 Personal history of transient ischemic attack (TIA), and cerebral infarction without residual deficits; G25.0 Essential tremor
CPT/HCPCS: 70450; 80048; 84484; 85025; 93005; 96361; 96374; 96375; 99218; 99285; J7030; A4216; G0378; J2405

== ENCOUNTER → 2018-09-19 10:53 | Outpatient (CLI) | payer MEDICARE, OTHER, SELFPAY ==
[2018-09-19 11:37] LABS: D-Dimer Quantitative (DVT/PE) 2.56 FEU/ug/m (0.27-0.49)
[2018-09-19 11:52] LABS: BNP,B-Type NATRIURETIC PEPTIDE 28.3 pg/mL (0-100)
== END ==
PROVIDERS: Family Provider Internal Medicine; PCP Internal Medicine; Referring Provider Nurse Practitioner; Visit Provider Nurse Practitioner
DX: R06.09 Other forms of dyspnea (principal); R60.0 Localized edema; R00.0 Tachycardia, unspecified
CPT/HCPCS: 83880; 85379

== ENCOUNTER → 2018-09-19 13:49 | Outpatient (CLI) | payer MEDICARE, OTHER, SELFPAY ==
--- NOTE | 2018-09-19 13:53 | CT_ITS ---
STUDY: CTA CHEST REASON FOR EXAM: Female, 83 years old. RADIATION DOSAGE (If Supplied By Facility): CTDIvol = ( 5.22 ) mGy, DLP = ( 197.39 ) mGycm TECHNIQUE: The examination was performed with the intravenous administration of 100 IV Isovue 370. Post-processing of the angiographic images was performed, with multiplanar reformation and 3D reconstruction. Individualized dose optimization techniques were used for this CT. COMPARISON: None. FINDINGS: Multiple transaxial computerized cuts of the chest were obtained after dynamic bolus injection of intravenous nonionic contrast. There are multiple pleural-based nodules also noted are multiple cavitating and non cavitating pulmonary nodules involving both upper lung leung. Honeycomb pattern is seen in the right middle lobe particularly adjacent to the heart also noted evidence of honeycomb pattern noted the right lower lobe anterior to the spine in the right base. Minimal cylindrical bronchiectasis atelectasis noted in both lower lung. The pulmonary arteries are well delineated including the pulmonary trunk and segmental / subsegmental branches without evidence of filling defects to suggest PE. No pleural effusion identified. Wedging fracture of T12. CT/CTA Chest W/WO Contrast IMPRESSION: Multiple pleural-based nodules as well as multiple cavitating and non cavitating nodules involving both lung leung Honeycomb pattern involving the medial aspect of the right lobe right lower. Minimal bronchiectasis seen both lower lung. There is a compression fracture involving the body of T12 Electronically Signed: Doug Gonzalez, at 15:06 EDT Tel , Service support ,
== END ==
PROVIDERS: Family Provider Internal Medicine; PCP Internal Medicine; Referring Provider Internal Medicine; Visit Provider Internal Medicine
DX: R06.02 Shortness of breath (principal); R79.89 Other specified abnormal findings of blood chemistry; R00.0 Tachycardia, unspecified; R06.09 Other forms of dyspnea; R60.0 Localized edema
CPT/HCPCS: 71275; 83880; 85379; Q9967